=== PATIENT | female | born 1935 | race Caucasian/White ===

== ENCOUNTER 2017-11-10 22:18 | Emergency (ER) | payer MEDICARE, MEDICAID ==
--- NOTE | 2017-11-10 22:48 | EDM.PDOC ---
ED HPI GENERAL MEDICAL PROBLEM - General Chief Complaint: General Stated Complaint: low neck pain Time Seen by Provider: 11/10/17 22:35 Source of Information: Reports: Patient, Family History Limitations: Reports: No Limitations - History of Present Illness INITIAL COMMENTS - FREE TEXT/NARRATIVE: Patient seen with chief complaint of cervical neck pain examination reveal severe paravertebral spasm of the right neck area Onset: Sudden Duration: Minutes:, Getting Worse Location: Reports: Neck Quality: Reports: Throbbing Severity: Moderate Improves with: Reports: None Worsens with: Reports: None Context: Reports: Activity Associated Symptoms: Reports: Weakness Lower Neck Pain Score (Numeric/FACES): 4 - Related Data Allergies Allergy/AdvReac Type Severity Reaction Status Date / Time No Known Allergies Allergy Verified 11/10/17 22:24 Home Meds: Home Meds Aspirin [Halfprin] 81 mg PO DAILY 11/10/17 [History] Calcium Carbonate/Vitamin D3 [Calcium 600 + Vit D 200] 1 tab PO DAILY 11/10/17 [ History] Levothyroxine 75 mcg PO ACBREAKFAST 11/10/17 [History] Multivit-Min/FA/Lycopene/Lut [Sentry Senior Tablet] 1 tab PO DAILY 11/10/17 [ History] PARoxetine [Paxil] 10 mg PO DAILY 11/10/17 [History] Umeclidinium [place] [Incruse Ellipta*] 1 puff INH DAILY 11/10/17 [History] ED ROS GENERAL - Review of Systems Review Of Systems: See Below Constitutional: Reports: No Symptoms HEENT: Reports: No Symptoms Respiratory: Reports: No Symptoms Cardiovascular: Reports: No Symptoms Endocrine: Reports: No Symptoms GI/Abdominal: Reports: No Symptoms : Reports: No Symptoms Musculoskeletal: Reports: Neck Pain Skin: Reports: No Symptoms Neurological: Reports: No Symptoms Psychiatric: Reports: No Symptoms ED EXAM, GENERAL - Physical Exam Exam: See Below Exam Limited By: No Limitations General Appearance: Alert, WD/WN, No Apparent Distress, Mild Distress Eye Exam: Bilateral Eye: EOMI, PERRL Ears: Normal External Exam, Normal Canal, Hearing Grossly Normal, Normal TMs Ear Exam: Bilateral Ear: Auricle Normal, Canal Normal, TM normal Nose: Normal Inspection, Normal Mucosa, No Blood Throat/Mouth: Normal Inspection, Normal Lips, Normal Teeth, Normal Gums, Normal Oropharynx, Normal Voice, No Airway Compromise Head: Atraumatic, Normocephalic Neck: Limited Range of Motion, Tender Lateral Respiratory/Chest: No Respiratory Distress, Lungs Clear, Normal Breath Sounds, No Accessory Muscle Use, Chest Non-Tender Cardiovascular: Normal Peripheral Pulses, Regular Rate, Rhythm, No Edema, No Gallop, No JVD, No Murmur, No Rub GI/Abdominal: Normal Bowel Sounds, Soft, Non-Tender, No Organomegaly, No Distention, No Abnormal Bruit, No Mass (Female) Exam: Normal External Exam, Normal Speculum Exam, Normal Bimanual Exam Rectal (Female) Exam: Deferred Back Exam: Decreased Range of Motion, Muscle Spasm, Paraspinal Tenderness ( Right cervical neck) Extremities: Normal Inspection, Normal Range of Motion, Non-Tender, Normal Capillary Refill, No Pedal Edema Neurological: Alert, Oriented, CN II-XII Intact, Normal Cognition, Normal Gait, Normal Reflexes, No Motor/Sensory Deficits Psychiatric: Normal Affect, Normal Mood Skin Exam: Warm, Dry, Intact, Normal Color, No Rash Course - Vital Signs Last Recorded V/S: Last Vital Signs Temp 97.3 F 11/10/17 22:19 Pulse 81 11/10/17 23:49 Resp 20 11/10/17 23:49 BP 169/88 H 11/10/17 23:24 Pulse Ox 94 L 11/10/17 23:49 - Orders/Labs/Meds Orders: Active Orders 24 hr Category Date Time Status Cervical Spine 2V or 3V [CR] Stat Exams 11/10/17 22:44 Taken Labs: Laboratory Tests 11/10/17 Range/Units 23:00 Sodium 138 (136-145) mmol/L Potassium 3.8 (3.5-5.1) mmol/L Chloride 101 (98-107) mmol/L Carbon Dioxide 29.5 (21.0-32.0) mmol/L BUN 26 H (7-18) mg/dL Creatinine 0.99 (0.51-1.17) mg/dL Est Cr Clr Drug Dosing 30.38 mL/min Estimated GFR (MDRD) 53 mL/min Glucose 116 H (74-106) mg/dL Calcium 8.7 (8.5-10.1) mg/dL Magnesium 1.9 (1.8-2.4) mg/dL Total Bilirubin 0.2 (0.2-1.0) mg/dL AST 19 (15-37) U/L ALT 15 (12-78) U/L Alkaline Phosphatase 54 (46-116) IU/L Total Protein 7.5 (6.4-8.2) g/dL Albumin 3.3 L (3.4-5.0) g/dL Meds: Medications Discontinued Medications Generic Name Dose Route Start Last Admin Trade Name Kobiq PRN Reason Stop Dose Admin Diazepam 5 mg 11/10/17 22:47 11/10/17 23:29 Valium IM 11/10/17 22:48 Not Given ONETIME ONE Diazepam 5 mg 11/10/17 22:53 11/10/17 23:00 Valium IVPUSH 11/10/17 22:54 5 mg ONETIME ONE Administration Ondansetron HCl 4 mg 11/10/17 22:53 11/10/17 23:00 Zofran IVPUSH 11/10/17 22:54 4 mg ONETIME ONE Administration Departure - Departure Time of Disposition: 23:53 Disposition: Home, Self-Care 01 Condition: Fair Clinical Impression: Muscle spasms of neck - Discharge Information Referrals: Manuelito Vu PA [Primary Care Provider] - Forms: ED Department Discharge Care Plan Goals: At this time patient will be sent home doing much better on Flexeril 5 mg 1 tablet 3 times a day report of x-ray revealed 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
[2017-11-10] MEDS ORDERED: Ondansetron 4 MG/2 ML SDV IVPUSH ONE (22:53)
== END 2017-11-11 00:18 | disposition home or self-care (01) ==
LOC: LL.ED 22:18
DX: M62.838 Other muscle spasm (principal); Z79.82 Long term (current) use of aspirin; Z79.899 Other long term (current) drug therapy
CPT/HCPCS: 36415; 72040; 80053; 83735; 96374; 96375; 99284; J2405; J3360; 99283

== ENCOUNTER 2019-06-16 16:41 | Emergency (ER) | payer MEDICARE, MEDICAID ==
--- NOTE | 2019-06-16 16:53 | EDM.PDOC ---
ED HPI GENERAL MEDICAL PROBLEM - General Chief Complaint: Upper Extremity Injury/Pain Stated Complaint: right elbow pain Time Seen by Provider: 06/16/19 16:45 Source of Information: Reports: Patient, EMS History Limitations: Reports: No Limitations - History of Present Illness INITIAL COMMENTS - FREE TEXT/NARRATIVE: Patient is a 83-year-old who was seen with chief complaint of right elbow pain she slipped on the bottom step landing on her right hip and elbow DL up of subcutaneous hematoma on the right elbow and also complained of some hip discomfort with weightbearing and movement Onset: Today Duration: Hour(s):, Constant Location: Reports: Upper Extremity, Right, Lower Extremity, Right Quality: Reports: Ache, Dull Severity: Mild Improves with: Reports: Rest Worsens with: Reports: Movement Context: Reports: Trauma Associated Symptoms: Reports: No Other Symptoms Right Elbow Pain Score (Numeric/FACES): 7 - Related Data Allergies Allergy/AdvReac Type Severity Reaction Status Date / Time No Known Allergies Allergy Verified 11/10/17 22:24 Home Meds: Home Meds Aspirin [Halfprin] 81 mg PO DAILY 11/10/17 [History] Calcium Carbonate/Vitamin D3 [Calcium 600 + Vit D 200] 1 tab PO DAILY 11/10/17 [ History] Levothyroxine 75 mcg PO ACBREAKFAST 11/10/17 [History] Multivit-Min/FA/Lycopene/Lut [Sentry Senior Tablet] 1 tab PO DAILY 11/10/17 [ History] Umeclidinium [place] [Incruse Ellipta*] 1 puff INH DAILY 11/10/17 [History] Citalopram [Citalopram HBr] 10 mg PO DAILY 06/16/19 [History] Past Medical History Respiratory History: Reports: COPD Psychiatric History: Reports: Depression Endocrine/Metabolic History: Reports: Hypothyroidism Social & Family History - Caffeine Use Caffeine Use: Reports: Coffee Review of Systems - Review of Systems Review Of Systems: See Below Constitutional: Reports: No Symptoms Eyes: Reports: No Symptoms Ears: Reports: No Symptoms Nose: Reports: No Symptoms Mouth/Throat: Reports: No Symptoms Respiratory: Reports: Other (History of COPD) Cardiovascular: Reports: No Symptoms GI/Abdominal: Reports: No Symptoms Genitourinary: Reports: No Symptoms Musculoskeletal: Reports: No Symptoms Skin: Reports: No Symptoms Neurological: Reports: No Symptoms Psychiatric: Reports: No Symptoms ED EXAM, GENERAL - Physical Exam Exam: See Below Exam Limited By: No Limitations General Appearance: Alert, WD/WN, No Apparent Distress Ears: Normal External Exam, Normal Canal, Hearing Grossly Normal, Normal TMs Nose: Normal Inspection, Normal Mucosa, No Blood Throat/Mouth: Normal Inspection, Normal Lips, Normal Teeth, Normal Gums, Normal Oropharynx, Normal Voice, No Airway Compromise Head: Atraumatic, Normocephalic Neck: Normal Inspection, Supple, Non-Tender, Full Range of Motion Respiratory/Chest: Decreased Breath Sounds, Prolonged Expiration Cardiovascular: Normal Peripheral Pulses, Regular Rate, Rhythm, No Edema, No Gallop, No JVD, No Murmur, No Rub GI/Abdominal: Normal Bowel Sounds, Soft, Non-Tender, No Organomegaly, No Distention, No Abnormal Bruit, No Mass (Female) Exam: Deferred Rectal (Female) Exam: Deferred Back Exam: Normal Inspection, Full Range of Motion, NT Extremities: Joint Swelling, Limited Range of Motion, Other (X-rays revealed right olecranon fracture comminuted, right subcapit fracture) Neurological: Alert, Oriented, CN II-XII Intact, Normal Cognition, Normal Gait, Normal Reflexes, No Motor/Sensory Deficits Psychiatric: Normal Affect, Normal Mood Skin Exam: Warm, Ecchymosis (Ecchymosis of the right elbow) Lymphatic: No Adenopathy Course - Vital Signs Last Recorded V/S: Last Vital Signs Temp 97 F 06/16/19 16:42 Pulse 72 06/16/19 16:42 Resp 20 06/16/19 16:42 BP 156/76 H 06/16/19 16:42 Pulse Ox 96 06/16/19 16:42 - Orders/Labs/Meds Orders: Active Orders 24 hr Category Date Time Status Elbow Min 3V Rt [CR] Stat Exams 06/16/19 16:44 Taken Hip Min 2V or 3V Rt [CR] Stat Exams 06/16/19 16:46 Ordered Departure - Departure Time of Disposition: 18:47 Disposition: DC/Tfer to Acute Hospital 02 Condition: Fair Clinical Impression: Fracture of olecranon process, right, closed, Subcapital fracture of femur - Discharge Information *PRESCRIPTION DRUG MONITORING PROGRAM REVIEWED*: No *COPY OF PRESCRIPTION DRUG MONITORING REPORT IN PATIENT BUDDY: No Forms: ED Department Discharge Care Plan Goals: Patient will be transferred to [facility] ER spoke with Dr. Mnuiz the patient and will place her on an arm sling at this time and transfer - My Orders Last 24 Hours: My Active Orders 06/16/19 16:44 Elbow Min 3V Rt [CR] Stat 06/16/19 16:46 Hip Min 2V or 3V Rt [CR] Stat - Assessment/Plan Last 24 Hours: My Active Orders 06/16/19 16:44 Elbow Min 3V Rt [CR] Stat 06/16/19 16:46 Hip Min 2V or 3V Rt [CR] Stat
== END 2019-06-16 19:25 ==
LOC: LL.ED 16:41
DX: S52.021A Displaced fracture of olecranon process without intraarticular extension of right ulna, initial encounter for closed fracture (principal); S72.011A Unspecified intracapsular fracture of right femur, initial encounter for closed fracture; J44.9 Chronic obstructive pulmonary disease, unspecified; F32.9 Major depressive disorder, single episode, unspecified; E03.9 Hypothyroidism, unspecified; Z79.82 Long term (current) use of aspirin; Z79.899 Other long term (current) drug therapy; W10.8XXA Fall (on) (from) other stairs and steps, initial encounter
CPT/HCPCS: 73080-RT; 99285-25

== ENCOUNTER 2019-06-21 12:38 | Inpatient (IN) | payer MEDICARE, MEDICAID ==
--- NOTE | 2019-06-21 16:23 | PCM.HP.2 ---
H&P History of Present Illness - General Date of Service: 06/21/19 Source of Information: Patient, Old Records History Limitations: Reports: No Limitations - History of Present Illness Initial Comments - Free Text/Narative: Patient is a 84-year-old who was at home was going down steps missed her step on the last step hitting her right elbow and right hip patient was brought in for evaluation x-rays revealed a comminuted fracture of the right olecranon process and a subcapital fracture of the right femur patient was sent to the [facility] where she was treated with surgery which she tolerated well and was sent to our facility for recovery Onset of Symptoms: Reports: Sudden Duration of Symptoms: Reports: Day(s):, Improving Location: Reports: Upper Extremity, Right, Lower Extremity, Right Quality: Reports: Ache Severity: Moderate Improves with: Reports: Medication, Rest Worsens with: Reports: Movement - Related Data Allergies/Adverse Reactions: Allergies Allergy/AdvReac Type Severity Reaction Status Date / Time No Known Allergies Allergy Verified 11/10/17 22:24 Home Medications: Home Meds Aspirin [Halfprin] 81 mg PO DAILY 11/10/17 [History] Calcium Carbonate/Vitamin D3 [Calcium 600 + Vit D 200] 1 tab PO BID 11/10/17 [ History] Levothyroxine 75 mcg PO ACBREAKFAST 11/10/17 [History] Multivit-Min/FA/Lycopene/Lut [Sentry Senior Tablet] 1 tab PO DAILY 11/10/17 [ History] Umeclidinium [place] [Incruse Ellipta*] 1 puff INH DAILY 11/10/17 [History] Citalopram [Citalopram HBr] 10 mg PO DAILY 06/16/19 [History] Acetaminophen 650 mg PO Q4HR PRN MDD 4000mg 06/21/19 [History] Bisacodyl [Dulcolax] 10 mg RECTAL DAILY PRN MDD 10mg 06/21/19 [History] Calcium Carbonate [Calcium] 500 mg PO Q4HR PRN 06/21/19 [History] Cyanocobalamin (Vitamin B-12) [B-12] 1,000 mcg PO DAILY 06/21/19 [History] Enoxaparin [Lovenox] 40 mg SUBCUT DAILY 06/21/19 [History] Ferrous Sulfate 325 mg PO BID 06/21/19 [History] Folic Acid 5 mg PO DAILY 06/21/19 [History] Hydrocodone/Acetaminophen [Hydrocodon-Acetaminophen 5-325] 1 tab PO Q4HR PRN MDD 4000mg acetaminophen 06/21/19 [History] Ondansetron [Zofran ODT] 4 mg PO Q8H PRN 06/21/19 [History] Polyethylene Glycol 3350 [Miralax] 1 packet PO DAILY PRN 06/21/19 [History] Past Medical History Respiratory History: Reports: COPD Psychiatric History: Reports: Depression Endocrine/Metabolic History: Reports: Hypothyroidism Social & Family History - Caffeine Use Caffeine Use: Reports: Coffee H&P Review of Systems - Review of Systems: Review Of Systems: See Below General: Reports: No Symptoms HEENT: Reports: No Symptoms Pulmonary: Reports: No Symptoms Cardiovascular: Reports: No Symptoms Gastrointestinal: Reports: No Symptoms Genitourinary: Reports: No Symptoms Musculoskeletal: Reports: Arm Pain, Leg Pain Skin: Reports: Bruising, Erythema, Change in Color Psychiatric: Reports: No Symptoms Neurological: Reports: No Symptoms Exam - Exam Exam: See Below - Vital Signs Vital Signs: Last Vital Signs Temp 98.9 F 06/21/19 13:54 Pulse 66 06/21/19 13:54 Resp 18 06/21/19 13:54 BP 145/74 H 06/21/19 13:54 Pulse Ox 95 06/21/19 13:54 Weight: 143 lb - Exam General: Alert, Oriented, 4 HEENT: PERRLA, Hearing Intact, Mucosa Moist & Portis, Nares Patent, Normal Nasal Septum, Posterior Pharynx Clear, Conjunctiva Clear, EOMI, EACs Clear, TMs Clear Neck: Supple, Trachea Midline, 2 Lungs: Clear to Auscultation, Normal Respiratory Effort Cardiovascular: Regular Rate, Regular Rhythm GI/Abdominal Exam: Normal Bowel Sounds, Soft, Non-Tender, No Organomegaly, No Distention, No Abnormal Bruit, No Mass, Pelvis Stable (Female) Exam: Deferred Rectal (Female) Exam: Deferred Extremities: Slow Capillary Refill, Arm Pain, Leg Pain, Limited Range of Motion Skin: Ecchymosis, Incision Neurological: Cranial Nerves Intact, Reflexes Equal Bilateral Neuro Extensive - Mental Status: Alert, Oriented x3, Normal Mood/Affect, Normal Cognition Psychiatric: Alert, Normal Affect, Normal Mood - Problem List (1) Fracture of olecranon process, right, closed SNOMED Code(s): 60727303 ICD Code: S52.021A - DISP FX OF OLECRAN PRO W/O INTARTIC EXTN RIGHT ULNA, INIT Status: Acute Current Visit: No Problem Details: Patient underwent ORIF and now back here for recovery Qualifiers: Encounter type: subsequent encounter (2) Subcapital fracture of femur SNOMED Code(s): 292375491 ICD Code: S72.019A - UNSP INTRACAPSULAR FRACTURE OF UNSP FEMUR, INIT FOR CLOS FX Status: Acute Current Visit: No Qualifiers: Encounter type: subsequent encounter Fracture type: closed Laterality: right Problem List Initiated/Reviewed/Updated: Yes Assessment/Plan Comment:: Patient will be admitted to swing bed for physical therapy - Mortality Measure Prognosis:: Good
[2019-06-21] MEDS ORDERED: Bisacodyl 10 MG Supp RECTAL PRN (16:40)
[2019-06-21] MEDS ORDERED: Calcium Carbonate 500 MG Tablet PO PRN (16:41)
[2019-06-21] MEDS ORDERED: Acetaminophen/HYDROcodone 325-5 MG Tab PO PRN (16:41)
[2019-06-21] MEDS ORDERED: Polyethylene Glycol 3350 Powder 17 GM Packet PO PRN (16:41)
[2019-06-21] MEDS ORDERED: Ondansetron 4 MG Tab.DIS PO PRN (16:41)
[2019-06-21] MEDS: Ferrous Sulfate 325 MG Tab PO SCH (17:48)
[2019-06-21] MEDS: Calcium Carbonate/Vitamin D3 1500 MG-400 Units Tab PO SCH (17:48)
[2019-06-22] MEDS ORDERED: Folic Acid 1 MG Tab PO SCH (08:00)
[2019-06-22] MEDS: Aspirin 81 MG Tab.EC PO SCH (08:19)
[2019-06-22] MEDS: Ferrous Sulfate 325 MG Tab PO SCH ×2 (08:19→17:16)
[2019-06-22] MEDS: Multivitamins with Iron and Minerals Tab.Chew PO SCH (08:19)
[2019-06-22] MEDS: Citalopram 20 MG Tab PO SCH (08:19)
[2019-06-22] MEDS: Calcium Carbonate/Vitamin D3 1500 MG-400 Units Tab PO SCH ×2 (08:19→17:16)
[2019-06-22] MEDS: Levothyroxine 75 MCG Tab PO SCH (08:19)
[2019-06-22] MEDS: INCRUSE ELLIPTA INH SCH (08:20)
[2019-06-22] MEDS: Cyanocobalamin (Vitamin B12) 1,000 MCG Tab PO SCH (08:20)
[2019-06-22] MEDS: Enoxaparin 40 MG/0.4 ML Syringe SUBCUT SCH (08:21)
[2019-06-22] MEDS: Folic Acid 1 MG Tab PO SCH (14:13)
[2019-06-23] MEDS: Multivitamins with Iron and Minerals Tab.Chew PO SCH (07:42)
[2019-06-23] MEDS: Aspirin 81 MG Tab.EC PO SCH (07:43)
[2019-06-23] MEDS: Calcium Carbonate/Vitamin D3 1500 MG-400 Units Tab PO SCH ×2 (07:43→17:10)
[2019-06-23] MEDS: Cyanocobalamin (Vitamin B12) 1,000 MCG Tab PO SCH (07:43)
[2019-06-23] MEDS: Ferrous Sulfate 325 MG Tab PO SCH ×2 (07:43→17:10)
[2019-06-23] MEDS: Levothyroxine 75 MCG Tab PO SCH (07:43)
[2019-06-23] MEDS: Enoxaparin 40 MG/0.4 ML Syringe SUBCUT SCH (07:43)
[2019-06-23] MEDS: Citalopram 20 MG Tab PO SCH (07:43)
[2019-06-23] MEDS: Folic Acid 1 MG Tab PO SCH (07:43)
[2019-06-23] MEDS: INCRUSE ELLIPTA INH SCH (07:44)
[2019-06-23] MEDS: Acetaminophen 325 MG Tab PO PRN (21:03)
[2019-06-24] MEDS: Calcium Carbonate/Vitamin D3 1500 MG-400 Units Tab PO SCH ×2 (07:23→17:27)
[2019-06-24] MEDS: Cyanocobalamin (Vitamin B12) 1,000 MCG Tab PO SCH (07:23)
[2019-06-24] MEDS: Aspirin 81 MG Tab.EC PO SCH (07:23)
[2019-06-24] MEDS: Folic Acid 1 MG Tab PO SCH (07:23)
[2019-06-24] MEDS: Ferrous Sulfate 325 MG Tab PO SCH ×2 (07:23→17:27)
[2019-06-24] MEDS: Levothyroxine 75 MCG Tab PO SCH (07:23)
[2019-06-24] MEDS: Tiotropium Inhaler 18 MCG Inhalation Powder Cap Kit of 5 INH SCH (07:24)
[2019-06-24] MEDS: Citalopram 20 MG Tab PO SCH (07:24)
[2019-06-24] MEDS: Multivitamin Tab PO SCH (07:24)
[2019-06-24] MEDS: Enoxaparin 40 MG/0.4 ML Syringe SUBCUT SCH (07:24)
[2019-06-24] MEDS: Acetaminophen 325 MG Tab PO PRN ×2 (15:57→21:29)
[2019-06-25] MEDS: Citalopram 20 MG Tab PO SCH (07:56)
[2019-06-25] MEDS: Cyanocobalamin (Vitamin B12) 1,000 MCG Tab PO SCH (07:56)
[2019-06-25] MEDS: Ferrous Sulfate 325 MG Tab PO SCH ×2 (07:57→17:36)
[2019-06-25] MEDS: Levothyroxine 75 MCG Tab PO SCH (07:57)
[2019-06-25] MEDS: Aspirin 81 MG Tab.EC PO SCH (07:57)
[2019-06-25] MEDS: Multivitamin Tab PO SCH (07:57)
[2019-06-25] MEDS: Enoxaparin 40 MG/0.4 ML Syringe SUBCUT SCH (07:57)
[2019-06-25] MEDS: Folic Acid 1 MG Tab PO SCH (07:58)
[2019-06-25] MEDS: Tiotropium Inhaler 18 MCG Inhalation Powder Cap Kit of 5 INH SCH (07:58)
[2019-06-25] MEDS: Calcium Carbonate/Vitamin D3 1500 MG-400 Units Tab PO SCH ×2 (07:58→17:36)
[2019-06-25] MEDS: Acetaminophen 325 MG Tab PO PRN ×2 (13:20→21:37)
[2019-06-25] MEDS: Temazepam 15 MG Cap PO PRN (21:37)
[2019-06-26] MEDS: Ferrous Sulfate 325 MG Tab PO SCH ×2 (07:25→17:47)
[2019-06-26] MEDS: Folic Acid 1 MG Tab PO SCH (07:25)
[2019-06-26] MEDS: Levothyroxine 75 MCG Tab PO SCH (07:25)
[2019-06-26] MEDS: Calcium Carbonate/Vitamin D3 1500 MG-400 Units Tab PO SCH ×2 (07:26→17:47)
[2019-06-26] MEDS: Aspirin 81 MG Tab.EC PO SCH (07:26)
[2019-06-26] MEDS: Citalopram 20 MG Tab PO SCH (07:26)
[2019-06-26] MEDS: Multivitamin Tab PO SCH (07:26)
[2019-06-26] MEDS: Cyanocobalamin (Vitamin B12) 1,000 MCG Tab PO SCH (07:26)
[2019-06-26] MEDS: Enoxaparin 40 MG/0.4 ML Syringe SUBCUT SCH (07:27)
[2019-06-26] MEDS: Tiotropium Inhaler 18 MCG Inhalation Powder Cap Kit of 5 INH SCH (07:39)
[2019-06-26] MEDS: Temazepam 15 MG Cap PO PRN (22:59)
[2019-06-27] MEDS: Enoxaparin 40 MG/0.4 ML Syringe SUBCUT SCH (08:15)
[2019-06-27] MEDS: Calcium Carbonate/Vitamin D3 1500 MG-400 Units Tab PO SCH ×2 (08:17→17:49)
[2019-06-27] MEDS: Aspirin 81 MG Tab.EC PO SCH (08:17)
[2019-06-27] MEDS: Citalopram 20 MG Tab PO SCH (08:17)
[2019-06-27] MEDS: Cyanocobalamin (Vitamin B12) 1,000 MCG Tab PO SCH (08:18)
[2019-06-27] MEDS: Folic Acid 1 MG Tab PO SCH (08:18)
[2019-06-27] MEDS: Ferrous Sulfate 325 MG Tab PO SCH ×2 (08:18→17:48)
[2019-06-27] MEDS: Levothyroxine 75 MCG Tab PO SCH (08:18)
[2019-06-27] MEDS: Multivitamin Tab PO SCH (08:19)
[2019-06-27] MEDS: Tiotropium Inhaler 18 MCG Inhalation Powder Cap Kit of 5 INH SCH (08:19)
[2019-06-27] MEDS: Acetaminophen 325 MG Tab PO PRN (17:48)
[2019-06-27] MEDS: Temazepam 15 MG Cap PO PRN (20:46)
[2019-06-28] MEDS: Acetaminophen 325 MG Tab PO PRN ×2 (02:44→21:12)
[2019-06-28] MEDS: Citalopram 20 MG Tab PO SCH (07:22)
[2019-06-28] MEDS: Aspirin 81 MG Tab.EC PO SCH (07:22)
[2019-06-28] MEDS: Multivitamin Tab PO SCH (07:22)
[2019-06-28] MEDS: Calcium Carbonate/Vitamin D3 1500 MG-400 Units Tab PO SCH ×2 (07:23→17:19)
[2019-06-28] MEDS: Ferrous Sulfate 325 MG Tab PO SCH ×2 (07:23→17:19)
[2019-06-28] MEDS: Levothyroxine 75 MCG Tab PO SCH (07:23)
[2019-06-28] MEDS: Folic Acid 1 MG Tab PO SCH (07:23)
[2019-06-28] MEDS: Enoxaparin 40 MG/0.4 ML Syringe SUBCUT SCH (07:23)
[2019-06-28] MEDS: Cyanocobalamin (Vitamin B12) 1,000 MCG Tab PO SCH (07:23)
[2019-06-28] MEDS: Tiotropium Inhaler 18 MCG Inhalation Powder Cap Kit of 5 INH SCH (07:24)
[2019-06-28] MEDS: Temazepam 15 MG Cap PO PRN (21:12)
[2019-06-29] MEDS: Levothyroxine 75 MCG Tab PO SCH (08:21)
[2019-06-29] MEDS: Citalopram 20 MG Tab PO SCH (08:21)
[2019-06-29] MEDS: Multivitamin Tab PO SCH (08:22)
[2019-06-29] MEDS: Folic Acid 1 MG Tab PO SCH (08:22)
[2019-06-29] MEDS: Ferrous Sulfate 325 MG Tab PO SCH ×2 (08:22→17:26)
[2019-06-29] MEDS: Aspirin 81 MG Tab.EC PO SCH (08:22)
[2019-06-29] MEDS: Calcium Carbonate/Vitamin D3 1500 MG-400 Units Tab PO SCH ×2 (08:22→17:26)
[2019-06-29] MEDS: Cyanocobalamin (Vitamin B12) 1,000 MCG Tab PO SCH (08:22)
[2019-06-29] MEDS: Enoxaparin 40 MG/0.4 ML Syringe SUBCUT SCH (08:23)
[2019-06-29] MEDS: Tiotropium Inhaler 18 MCG Inhalation Powder Cap Kit of 5 INH SCH (08:24)
[2019-06-29] MEDS: Acetaminophen 325 MG Tab PO PRN (20:31)
[2019-06-29] MEDS: Temazepam 15 MG Cap PO PRN (20:31)
[2019-06-30] MEDS: Calcium Carbonate/Vitamin D3 1500 MG-400 Units Tab PO SCH ×2 (07:54→17:18)
[2019-06-30] MEDS: Levothyroxine 75 MCG Tab PO SCH (07:54)
[2019-06-30] MEDS: Citalopram 20 MG Tab PO SCH (07:54)
[2019-06-30] MEDS: Cyanocobalamin (Vitamin B12) 1,000 MCG Tab PO SCH (07:54)
[2019-06-30] MEDS: Ferrous Sulfate 325 MG Tab PO SCH ×2 (07:54→17:18)
[2019-06-30] MEDS: Enoxaparin 40 MG/0.4 ML Syringe SUBCUT SCH (07:54)
[2019-06-30] MEDS: Multivitamin Tab PO SCH (07:54)
[2019-06-30] MEDS: Folic Acid 1 MG Tab PO SCH (07:54)
[2019-06-30] MEDS: Aspirin 81 MG Tab.EC PO SCH (07:54)
[2019-06-30] MEDS: Tiotropium Inhaler 18 MCG Inhalation Powder Cap Kit of 5 INH SCH (07:59)
[2019-06-30] MEDS: Melatonin 3 MG Tab PO SCH (20:48)
[2019-06-30] MEDS: Acetaminophen 325 MG Tab PO PRN (20:48)
[2019-07-01] MEDS: Levothyroxine 75 MCG Tab PO SCH (07:38)
[2019-07-01] MEDS: Aspirin 81 MG Tab.EC PO SCH (07:47)
[2019-07-01] MEDS: Ferrous Sulfate 325 MG Tab PO SCH ×2 (07:47→17:05)
[2019-07-01] MEDS: Multivitamin Tab PO SCH (07:47)
[2019-07-01] MEDS: Cyanocobalamin (Vitamin B12) 1,000 MCG Tab PO SCH (07:47)
[2019-07-01] MEDS: Citalopram 20 MG Tab PO SCH (07:48)
[2019-07-01] MEDS: Calcium Carbonate/Vitamin D3 1500 MG-400 Units Tab PO SCH ×2 (07:49→17:05)
[2019-07-01] MEDS: Folic Acid 1 MG Tab PO SCH (07:49)
[2019-07-01] MEDS: Tiotropium Inhaler 18 MCG Inhalation Powder Cap Kit of 5 INH SCH (07:53)
[2019-07-01] MEDS: Enoxaparin 40 MG/0.4 ML Syringe SUBCUT SCH (07:53)
[2019-07-01] MEDS: Melatonin 3 MG Tab PO SCH (19:19)
[2019-07-01] MEDS: Acetaminophen 325 MG Tab PO PRN (20:19)
[2019-07-02] MEDS: Calcium Carbonate/Vitamin D3 1500 MG-400 Units Tab PO SCH ×2 (07:29→18:06)
[2019-07-02] MEDS: Aspirin 81 MG Tab.EC PO SCH (07:30)
[2019-07-02] MEDS: Levothyroxine 75 MCG Tab PO SCH (07:30)
[2019-07-02] MEDS: Multivitamin Tab PO SCH (07:30)
[2019-07-02] MEDS: Cyanocobalamin (Vitamin B12) 1,000 MCG Tab PO SCH (07:30)
[2019-07-02] MEDS: Citalopram 20 MG Tab PO SCH (07:30)
[2019-07-02] MEDS: Ferrous Sulfate 325 MG Tab PO SCH ×2 (07:30→18:07)
[2019-07-02] MEDS: Folic Acid 1 MG Tab PO SCH (07:30)
[2019-07-02] MEDS: Enoxaparin 40 MG/0.4 ML Syringe SUBCUT SCH (07:31)
[2019-07-02] MEDS: Acetaminophen 325 MG Tab PO PRN ×2 (07:31→20:27)
[2019-07-02] MEDS: Tiotropium Inhaler 18 MCG Inhalation Powder Cap Kit of 5 INH SCH (07:37)
[2019-07-02] MEDS: Melatonin 3 MG Tab PO SCH (20:25)
[2019-07-03] MEDS: Tiotropium Inhaler 18 MCG Inhalation Powder Cap Kit of 5 INH SCH (08:09)
[2019-07-03] MEDS: Enoxaparin 40 MG/0.4 ML Syringe SUBCUT SCH (08:09)
[2019-07-03] MEDS: Levothyroxine 75 MCG Tab PO SCH (08:10)
[2019-07-03] MEDS: Citalopram 20 MG Tab PO SCH (08:10)
[2019-07-03] MEDS: Ferrous Sulfate 325 MG Tab PO SCH ×2 (08:10→17:22)
[2019-07-03] MEDS: Multivitamin Tab PO SCH (08:11)
[2019-07-03] MEDS: Aspirin 81 MG Tab.EC PO SCH (08:11)
[2019-07-03] MEDS: Calcium Carbonate/Vitamin D3 1500 MG-400 Units Tab PO SCH ×2 (08:11→17:23)
[2019-07-03] MEDS: Cyanocobalamin (Vitamin B12) 1,000 MCG Tab PO SCH (08:11)
[2019-07-03] MEDS: Folic Acid 1 MG Tab PO SCH (08:11)
[2019-07-03] MEDS: Acetaminophen 325 MG Tab PO PRN (19:09)
[2019-07-03] MEDS: Melatonin 3 MG Tab PO SCH (19:09)
[2019-07-04] MEDS: Citalopram 20 MG Tab PO SCH (07:06)
[2019-07-04] MEDS: Ferrous Sulfate 325 MG Tab PO SCH ×2 (07:07→17:03)
[2019-07-04] MEDS: Levothyroxine 75 MCG Tab PO SCH (07:07)
[2019-07-04] MEDS: Calcium Carbonate/Vitamin D3 1500 MG-400 Units Tab PO SCH ×2 (07:08→17:03)
[2019-07-04] MEDS: Aspirin 81 MG Tab.EC PO SCH (07:08)
[2019-07-04] MEDS: Cyanocobalamin (Vitamin B12) 1,000 MCG Tab PO SCH (07:09)
[2019-07-04] MEDS: Folic Acid 1 MG Tab PO SCH (07:09)
[2019-07-04] MEDS: Multivitamin Tab PO SCH (07:09)
[2019-07-04] MEDS: Tiotropium Inhaler 18 MCG Inhalation Powder Cap Kit of 5 INH SCH (07:09)
[2019-07-04] MEDS: Enoxaparin 40 MG/0.4 ML Syringe SUBCUT SCH (07:10)
[2019-07-04] MEDS: Acetaminophen 325 MG Tab PO PRN ×4 (07:10→21:11)
[2019-07-04] MEDS: Melatonin 3 MG Tab PO SCH (21:11)
[2019-07-05] MEDS: Enoxaparin 40 MG/0.4 ML Syringe SUBCUT SCH (07:46)
[2019-07-05] MEDS: Multivitamin Tab PO SCH (07:47)
[2019-07-05] MEDS: Citalopram 20 MG Tab PO SCH (07:47)
[2019-07-05] MEDS: Folic Acid 1 MG Tab PO SCH (07:48)
[2019-07-05] MEDS: Calcium Carbonate/Vitamin D3 1500 MG-400 Units Tab PO SCH ×2 (07:48→17:49)
[2019-07-05] MEDS: Cyanocobalamin (Vitamin B12) 1,000 MCG Tab PO SCH (07:48)
[2019-07-05] MEDS: Ferrous Sulfate 325 MG Tab PO SCH ×2 (07:48→17:49)
[2019-07-05] MEDS: Aspirin 81 MG Tab.EC PO SCH (07:48)
[2019-07-05] MEDS: Levothyroxine 75 MCG Tab PO SCH (07:49)
[2019-07-05] MEDS: Tiotropium Inhaler 18 MCG Inhalation Powder Cap Kit of 5 INH SCH (07:50)
[2019-07-05] MEDS: Acetaminophen 325 MG Tab PO PRN (19:55)
[2019-07-05] MEDS: Melatonin 3 MG Tab PO SCH (19:55)
[2019-07-06] MEDS: Folic Acid 1 MG Tab PO SCH (07:40)
[2019-07-06] MEDS: Levothyroxine 75 MCG Tab PO SCH (07:40)
[2019-07-06] MEDS: Ferrous Sulfate 325 MG Tab PO SCH ×2 (07:40→17:18)
[2019-07-06] MEDS: Calcium Carbonate/Vitamin D3 1500 MG-400 Units Tab PO SCH ×2 (07:40→17:18)
[2019-07-06] MEDS: Citalopram 20 MG Tab PO SCH (07:41)
[2019-07-06] MEDS: Cyanocobalamin (Vitamin B12) 1,000 MCG Tab PO SCH (07:41)
[2019-07-06] MEDS: Multivitamin Tab PO SCH (07:41)
[2019-07-06] MEDS: Aspirin 81 MG Tab.EC PO SCH (07:41)
[2019-07-06] MEDS: Enoxaparin 40 MG/0.4 ML Syringe SUBCUT SCH (07:42)
[2019-07-06] MEDS: Tiotropium Inhaler 18 MCG Inhalation Powder Cap Kit of 5 INH SCH (07:42)
[2019-07-06] MEDS: Polyvinyl Alcohol 1.4% Ophth Soln 15 ML Bottle EYEBOTH PRN (19:06)
[2019-07-06] MEDS: Acetaminophen 325 MG Tab PO PRN (19:07)
[2019-07-06] MEDS: Melatonin 3 MG Tab PO SCH (19:07)
[2019-07-06] MEDS ORDERED: Calcium Carbonate 750 MG Tab.Chew PO PRN (19:08)
[2019-07-07] MEDS: Calcium Carbonate/Vitamin D3 1500 MG-400 Units Tab PO SCH ×2 (07:15→17:28)
[2019-07-07] MEDS: Folic Acid 1 MG Tab PO SCH (07:15)
[2019-07-07] MEDS: Cyanocobalamin (Vitamin B12) 1,000 MCG Tab PO SCH (07:15)
[2019-07-07] MEDS: Aspirin 81 MG Tab.EC PO SCH (07:15)
[2019-07-07] MEDS: Multivitamin Tab PO SCH (07:15)
[2019-07-07] MEDS: Citalopram 20 MG Tab PO SCH (07:16)
[2019-07-07] MEDS: Levothyroxine 75 MCG Tab PO SCH (07:16)
[2019-07-07] MEDS: Ferrous Sulfate 325 MG Tab PO SCH ×2 (07:16→17:28)
[2019-07-07] MEDS: Enoxaparin 40 MG/0.4 ML Syringe SUBCUT SCH (07:17)
[2019-07-07] MEDS: Tiotropium Inhaler 18 MCG Inhalation Powder Cap Kit of 5 INH SCH (07:18)
[2019-07-07] MEDS ORDERED: Pantoprazole 40 MG Vial IVPUSH SCH (14:00)
[2019-07-07] MEDS: Polyvinyl Alcohol 1.4% Ophth Soln 15 ML Bottle EYEBOTH PRN (19:41)
[2019-07-07] MEDS: Melatonin 3 MG Tab PO SCH (19:41)
[2019-07-07] MEDS: Acetaminophen 325 MG Tab PO PRN (19:41)
[2019-07-07] MEDS: Temazepam 15 MG Cap PO PRN (22:28)
[2019-07-08] MEDS: Levothyroxine 75 MCG Tab PO SCH (08:51)
[2019-07-08] MEDS: Tiotropium Inhaler 18 MCG Inhalation Powder Cap Kit of 5 INH SCH (08:51)
[2019-07-08] MEDS: Ferrous Sulfate 325 MG Tab PO SCH ×2 (08:52→17:50)
[2019-07-08] MEDS: Aspirin 81 MG Tab.EC PO SCH (08:52)
[2019-07-08] MEDS: Calcium Carbonate/Vitamin D3 1500 MG-400 Units Tab PO SCH ×2 (08:52→17:50)
[2019-07-08] MEDS: Multivitamin Tab PO SCH (08:53)
[2019-07-08] MEDS: Citalopram 20 MG Tab PO SCH (08:53)
[2019-07-08] MEDS: Cyanocobalamin (Vitamin B12) 1,000 MCG Tab PO SCH (08:53)
[2019-07-08] MEDS: Folic Acid 1 MG Tab PO SCH (08:53)
[2019-07-08] MEDS: Enoxaparin 40 MG/0.4 ML Syringe SUBCUT SCH (08:54)
[2019-07-08] MEDS: Melatonin 3 MG Tab PO SCH (21:02)
[2019-07-08] MEDS: Acetaminophen 325 MG Tab PO PRN (21:02)
[2019-07-09] MEDS: Enoxaparin 40 MG/0.4 ML Syringe SUBCUT SCH (07:54)
[2019-07-09] MEDS: Levothyroxine 75 MCG Tab PO SCH (07:55)
[2019-07-09] MEDS: Calcium Carbonate/Vitamin D3 1500 MG-400 Units Tab PO SCH ×2 (07:55→17:50)
[2019-07-09] MEDS: Folic Acid 1 MG Tab PO SCH (07:55)
[2019-07-09] MEDS: Multivitamin Tab PO SCH (07:55)
[2019-07-09] MEDS: Aspirin 81 MG Tab.EC PO SCH (07:55)
[2019-07-09] MEDS: Cyanocobalamin (Vitamin B12) 1,000 MCG Tab PO SCH (07:56)
[2019-07-09] MEDS: Citalopram 20 MG Tab PO SCH (07:56)
[2019-07-09] MEDS: Ferrous Sulfate 325 MG Tab PO SCH ×2 (07:56→17:49)
[2019-07-09] MEDS: Tiotropium Inhaler 18 MCG Inhalation Powder Cap Kit of 5 INH SCH (07:56)
[2019-07-09] MEDS: Acetaminophen 325 MG Tab PO PRN (19:42)
[2019-07-09] MEDS: Melatonin 3 MG Tab PO SCH (19:42)
[2019-07-10] MEDS: Levothyroxine 75 MCG Tab PO SCH (07:25)
[2019-07-10] MEDS: Citalopram 20 MG Tab PO SCH (07:26)
[2019-07-10] MEDS: Calcium Carbonate/Vitamin D3 1500 MG-400 Units Tab PO SCH ×2 (07:26→17:06)
[2019-07-10] MEDS: Ferrous Sulfate 325 MG Tab PO SCH ×2 (07:27→17:06)
[2019-07-10] MEDS: Aspirin 81 MG Tab.EC PO SCH (07:27)
[2019-07-10] MEDS: Folic Acid 1 MG Tab PO SCH (07:27)
[2019-07-10] MEDS: Enoxaparin 40 MG/0.4 ML Syringe SUBCUT SCH (07:27)
[2019-07-10] MEDS: Multivitamin Tab PO SCH (07:28)
[2019-07-10] MEDS: Tiotropium Inhaler 18 MCG Inhalation Powder Cap Kit of 5 INH SCH (07:28)
[2019-07-10] MEDS: Cyanocobalamin (Vitamin B12) 1,000 MCG Tab PO SCH (07:28)
[2019-07-10] MEDS: Acetaminophen 325 MG Tab PO PRN (20:05)
[2019-07-10] MEDS: Melatonin 3 MG Tab PO SCH (20:06)
[2019-07-11] MEDS: Calcium Carbonate/Vitamin D3 1500 MG-400 Units Tab PO SCH ×2 (08:04→17:38)
[2019-07-11] MEDS: Ferrous Sulfate 325 MG Tab PO SCH ×2 (08:04→17:38)
[2019-07-11] MEDS: Citalopram 20 MG Tab PO SCH (08:04)
[2019-07-11] MEDS: Enoxaparin 40 MG/0.4 ML Syringe SUBCUT SCH (08:04)
[2019-07-11] MEDS: Cyanocobalamin (Vitamin B12) 1,000 MCG Tab PO SCH (08:04)
[2019-07-11] MEDS: Folic Acid 1 MG Tab PO SCH (08:04)
[2019-07-11] MEDS: Aspirin 81 MG Tab.EC PO SCH (08:04)
[2019-07-11] MEDS: Levothyroxine 75 MCG Tab PO SCH (08:04)
[2019-07-11] MEDS: Multivitamin Tab PO SCH (08:04)
[2019-07-11] MEDS: Tiotropium Inhaler 18 MCG Inhalation Powder Cap Kit of 5 INH SCH (08:05)
[2019-07-11] MEDS: Acetaminophen 325 MG Tab PO PRN (20:31)
[2019-07-11] MEDS: Melatonin 3 MG Tab PO SCH (20:31)
[2019-07-12] MEDS: Multivitamin Tab PO SCH (07:48)
[2019-07-12] MEDS: Ferrous Sulfate 325 MG Tab PO SCH ×2 (07:48→17:24)
[2019-07-12] MEDS: Citalopram 20 MG Tab PO SCH (07:48)
[2019-07-12] MEDS: Cyanocobalamin (Vitamin B12) 1,000 MCG Tab PO SCH (07:48)
[2019-07-12] MEDS: Aspirin 81 MG Tab.EC PO SCH (07:48)
[2019-07-12] MEDS: Calcium Carbonate/Vitamin D3 1500 MG-400 Units Tab PO SCH ×2 (07:49→17:24)
[2019-07-12] MEDS: Folic Acid 1 MG Tab PO SCH (07:49)
[2019-07-12] MEDS: Levothyroxine 75 MCG Tab PO SCH (07:49)
[2019-07-12] MEDS: Enoxaparin 40 MG/0.4 ML Syringe SUBCUT SCH (07:50)
[2019-07-12] MEDS: Tiotropium Inhaler 18 MCG Inhalation Powder Cap Kit of 5 INH SCH (07:51)
[2019-07-12] MEDS: Acetaminophen 325 MG Tab PO PRN (19:49)
[2019-07-12] MEDS: Melatonin 3 MG Tab PO SCH (19:50)
[2019-07-13] MEDS: Enoxaparin 40 MG/0.4 ML Syringe SUBCUT SCH (07:45)
[2019-07-13] MEDS: Cyanocobalamin (Vitamin B12) 1,000 MCG Tab PO SCH (07:46)
[2019-07-13] MEDS: Multivitamin Tab PO SCH (07:46)
[2019-07-13] MEDS: Citalopram 20 MG Tab PO SCH (07:46)
[2019-07-13] MEDS: Tiotropium Inhaler 18 MCG Inhalation Powder Cap Kit of 5 INH SCH (07:46)
[2019-07-13] MEDS: Ferrous Sulfate 325 MG Tab PO SCH ×2 (07:46→17:06)
[2019-07-13] MEDS: Calcium Carbonate/Vitamin D3 1500 MG-400 Units Tab PO SCH ×2 (07:47→17:06)
[2019-07-13] MEDS: Levothyroxine 75 MCG Tab PO SCH (07:47)
[2019-07-13] MEDS: Aspirin 81 MG Tab.EC PO SCH (07:47)
[2019-07-13] MEDS: Folic Acid 1 MG Tab PO SCH (07:47)
[2019-07-13] MEDS: Melatonin 3 MG Tab PO SCH (20:10)
[2019-07-13] MEDS: Acetaminophen 325 MG Tab PO PRN (20:10)
[2019-07-14] MEDS: Calcium Carbonate/Vitamin D3 1500 MG-400 Units Tab PO SCH ×2 (07:43→17:49)
[2019-07-14] MEDS: Aspirin 81 MG Tab.EC PO SCH (07:43)
[2019-07-14] MEDS: Cyanocobalamin (Vitamin B12) 1,000 MCG Tab PO SCH (07:43)
[2019-07-14] MEDS: Levothyroxine 75 MCG Tab PO SCH (07:44)
[2019-07-14] MEDS: Folic Acid 1 MG Tab PO SCH (07:44)
[2019-07-14] MEDS: Citalopram 20 MG Tab PO SCH (07:44)
[2019-07-14] MEDS: Tiotropium Inhaler 18 MCG Inhalation Powder Cap Kit of 5 INH SCH (07:44)
[2019-07-14] MEDS: Multivitamin Tab PO SCH (07:44)
[2019-07-14] MEDS: Ferrous Sulfate 325 MG Tab PO SCH ×2 (07:44→17:49)
[2019-07-14] MEDS: Enoxaparin 40 MG/0.4 ML Syringe SUBCUT SCH (07:45)
[2019-07-14] MEDS: Acetaminophen 325 MG Tab PO PRN (19:36)
[2019-07-14] MEDS: Melatonin 3 MG Tab PO SCH (19:36)
[2019-07-15] MEDS: Tiotropium Inhaler 18 MCG Inhalation Powder Cap Kit of 5 INH SCH (07:24)
[2019-07-15] MEDS: Citalopram 20 MG Tab PO SCH (07:26)
[2019-07-15] MEDS: Levothyroxine 75 MCG Tab PO SCH (07:27)
[2019-07-15] MEDS: Folic Acid 1 MG Tab PO SCH (07:27)
[2019-07-15] MEDS: Aspirin 81 MG Tab.EC PO SCH (07:27)
[2019-07-15] MEDS: Calcium Carbonate/Vitamin D3 1500 MG-400 Units Tab PO SCH ×2 (07:27→17:45)
[2019-07-15] MEDS: Ferrous Sulfate 325 MG Tab PO SCH ×2 (07:28→17:45)
[2019-07-15] MEDS: Cyanocobalamin (Vitamin B12) 1,000 MCG Tab PO SCH (07:28)
[2019-07-15] MEDS: Multivitamin Tab PO SCH (07:28)
[2019-07-15] MEDS: Melatonin 3 MG Tab PO SCH (19:31)
[2019-07-15] MEDS: Acetaminophen 325 MG Tab PO PRN (19:35)
[2019-07-16] MEDS: Levothyroxine 75 MCG Tab PO SCH (08:18)
[2019-07-16] MEDS: Citalopram 20 MG Tab PO SCH (08:18)
[2019-07-16] MEDS: Aspirin 81 MG Tab.EC PO SCH (08:18)
[2019-07-16] MEDS: Multivitamin Tab PO SCH (08:18)
[2019-07-16] MEDS: Cyanocobalamin (Vitamin B12) 1,000 MCG Tab PO SCH (08:18)
[2019-07-16] MEDS: Folic Acid 1 MG Tab PO SCH (08:18)
[2019-07-16] MEDS: Calcium Carbonate/Vitamin D3 1500 MG-400 Units Tab PO SCH ×2 (08:19→17:01)
[2019-07-16] MEDS: Tiotropium Inhaler 18 MCG Inhalation Powder Cap Kit of 5 INH SCH (08:19)
[2019-07-16] MEDS: Ferrous Sulfate 325 MG Tab PO SCH ×2 (08:19→17:01)
[2019-07-16] MEDS: Melatonin 3 MG Tab PO SCH (19:56)
[2019-07-16] MEDS: Acetaminophen 325 MG Tab PO PRN (19:56)
[2019-07-17] MEDS: Levothyroxine 75 MCG Tab PO SCH (07:18)
[2019-07-17] MEDS: Tiotropium Inhaler 18 MCG Inhalation Powder Cap Kit of 5 INH SCH (07:18)
[2019-07-17] MEDS: Folic Acid 1 MG Tab PO SCH (07:19)
[2019-07-17] MEDS: Aspirin 81 MG Tab.EC PO SCH (07:19)
[2019-07-17] MEDS: Cyanocobalamin (Vitamin B12) 1,000 MCG Tab PO SCH (07:19)
[2019-07-17] MEDS: Multivitamin Tab PO SCH (07:19)
[2019-07-17] MEDS: Ferrous Sulfate 325 MG Tab PO SCH ×2 (07:19→17:57)
[2019-07-17] MEDS: Calcium Carbonate/Vitamin D3 1500 MG-400 Units Tab PO SCH ×2 (07:19→17:57)
[2019-07-17] MEDS: Citalopram 20 MG Tab PO SCH (07:19)
[2019-07-17] MEDS: Acetaminophen 325 MG Tab PO PRN (19:44)
[2019-07-17] MEDS: Melatonin 3 MG Tab PO SCH (19:44)
[2019-07-18] MEDS: Ferrous Sulfate 325 MG Tab PO SCH ×2 (08:04→17:14)
[2019-07-18] MEDS: Calcium Carbonate/Vitamin D3 1500 MG-400 Units Tab PO SCH ×2 (08:04→17:14)
[2019-07-18] MEDS: Multivitamin Tab PO SCH (08:05)
[2019-07-18] MEDS: Cyanocobalamin (Vitamin B12) 1,000 MCG Tab PO SCH (08:05)
[2019-07-18] MEDS: Aspirin 81 MG Tab.EC PO SCH (08:05)
[2019-07-18] MEDS: Levothyroxine 75 MCG Tab PO SCH (08:05)
[2019-07-18] MEDS: Folic Acid 1 MG Tab PO SCH (08:05)
[2019-07-18] MEDS: Tiotropium Inhaler 18 MCG Inhalation Powder Cap Kit of 5 INH SCH (08:06)
[2019-07-18] MEDS: Citalopram 20 MG Tab PO SCH (08:06)
[2019-07-18] MEDS: Acetaminophen 325 MG Tab PO PRN (20:21)
[2019-07-18] MEDS: Melatonin 3 MG Tab PO SCH (20:22)
[2019-07-19] MEDS: Citalopram 20 MG Tab PO SCH (07:24)
[2019-07-19] MEDS: Tiotropium Inhaler 18 MCG Inhalation Powder Cap Kit of 5 INH SCH (07:24)
[2019-07-19] MEDS: Levothyroxine 75 MCG Tab PO SCH (07:25)
[2019-07-19] MEDS: Calcium Carbonate/Vitamin D3 1500 MG-400 Units Tab PO SCH ×2 (07:25→17:35)
[2019-07-19] MEDS: Aspirin 81 MG Tab.EC PO SCH (07:25)
[2019-07-19] MEDS: Cyanocobalamin (Vitamin B12) 1,000 MCG Tab PO SCH (07:25)
[2019-07-19] MEDS: Multivitamin Tab PO SCH (07:25)
[2019-07-19] MEDS: Ferrous Sulfate 325 MG Tab PO SCH ×2 (07:25→17:35)
[2019-07-19] MEDS: Folic Acid 1 MG Tab PO SCH (07:40)
[2019-07-19] MEDS: Melatonin 3 MG Tab PO SCH (19:46)
[2019-07-19] MEDS: Acetaminophen 325 MG Tab PO PRN (19:47)
[2019-07-20] MEDS: Multivitamin Tab PO SCH (07:22)
[2019-07-20] MEDS: Ferrous Sulfate 325 MG Tab PO SCH ×2 (07:22→17:55)
[2019-07-20] MEDS: Cyanocobalamin (Vitamin B12) 1,000 MCG Tab PO SCH (07:22)
[2019-07-20] MEDS: Aspirin 81 MG Tab.EC PO SCH (07:22)
[2019-07-20] MEDS: Calcium Carbonate/Vitamin D3 1500 MG-400 Units Tab PO SCH ×2 (07:22→17:55)
[2019-07-20] MEDS: Tiotropium Inhaler 18 MCG Inhalation Powder Cap Kit of 5 INH SCH (07:22)
[2019-07-20] MEDS: Levothyroxine 75 MCG Tab PO SCH (07:22)
[2019-07-20] MEDS: Citalopram 20 MG Tab PO SCH (07:22)
[2019-07-20] MEDS: Folic Acid 1 MG Tab PO SCH (07:22)
[2019-07-20] MEDS: Calcium Carbonate 750 MG Tab.Chew PO PRN (19:23)
[2019-07-20] MEDS: Melatonin 3 MG Tab PO SCH (20:04)
[2019-07-20] MEDS: Acetaminophen 325 MG Tab PO PRN (20:04)
[2019-07-21] MEDS: Ferrous Sulfate 325 MG Tab PO SCH ×2 (07:36→17:35)
[2019-07-21] MEDS: Multivitamin Tab PO SCH (07:37)
[2019-07-21] MEDS: Levothyroxine 75 MCG Tab PO SCH (07:37)
[2019-07-21] MEDS: Folic Acid 1 MG Tab PO SCH (07:37)
[2019-07-21] MEDS: Aspirin 81 MG Tab.EC PO SCH (07:37)
[2019-07-21] MEDS: Calcium Carbonate/Vitamin D3 1500 MG-400 Units Tab PO SCH ×2 (07:38→17:35)
[2019-07-21] MEDS: Cyanocobalamin (Vitamin B12) 1,000 MCG Tab PO SCH (07:38)
[2019-07-21] MEDS: Citalopram 20 MG Tab PO SCH (07:38)
[2019-07-21] MEDS: Tiotropium Inhaler 18 MCG Inhalation Powder Cap Kit of 5 INH SCH (07:39)
[2019-07-21] MEDS: Melatonin 3 MG Tab PO SCH (20:21)
[2019-07-21] MEDS: Calcium Carbonate 750 MG Tab.Chew PO PRN (20:22)
[2019-07-22] MEDS: Ferrous Sulfate 325 MG Tab PO SCH ×2 (08:11→19:14)
[2019-07-22] MEDS: Calcium Carbonate/Vitamin D3 1500 MG-400 Units Tab PO SCH ×2 (08:11→19:13)
[2019-07-22] MEDS: Levothyroxine 75 MCG Tab PO SCH (08:11)
[2019-07-22] MEDS: Multivitamin Tab PO SCH (08:11)
[2019-07-22] MEDS: Citalopram 20 MG Tab PO SCH (08:12)
[2019-07-22] MEDS: Cyanocobalamin (Vitamin B12) 1,000 MCG Tab PO SCH (08:12)
[2019-07-22] MEDS: Aspirin 81 MG Tab.EC PO SCH (08:12)
[2019-07-22] MEDS: Tiotropium Inhaler 18 MCG Inhalation Powder Cap Kit of 5 INH SCH (08:12)
[2019-07-22] MEDS: Folic Acid 1 MG Tab PO SCH (08:12)
[2019-07-22] MEDS: Melatonin 3 MG Tab PO SCH (20:27)
[2019-07-23] MEDS: Ferrous Sulfate 325 MG Tab PO SCH ×2 (08:42→17:55)
[2019-07-23] MEDS: Citalopram 20 MG Tab PO SCH (08:43)
[2019-07-23] MEDS: Levothyroxine 75 MCG Tab PO SCH (08:43)
[2019-07-23] MEDS: Calcium Carbonate/Vitamin D3 1500 MG-400 Units Tab PO SCH ×2 (08:43→17:55)
[2019-07-23] MEDS: Multivitamin Tab PO SCH (08:43)
[2019-07-23] MEDS: Cyanocobalamin (Vitamin B12) 1,000 MCG Tab PO SCH (08:44)
[2019-07-23] MEDS: Folic Acid 1 MG Tab PO SCH (08:44)
[2019-07-23] MEDS: Aspirin 81 MG Tab.EC PO SCH (08:44)
[2019-07-23] MEDS: Tiotropium Inhaler 18 MCG Inhalation Powder Cap Kit of 5 INH SCH (08:47)
[2019-07-23] MEDS: Acetaminophen 325 MG Tab PO PRN (20:58)
[2019-07-23] MEDS: Melatonin 3 MG Tab PO SCH (20:58)
[2019-07-24] MEDS: Tiotropium Inhaler 18 MCG Inhalation Powder Cap Kit of 5 INH SCH (07:55)
[2019-07-24] MEDS: Aspirin 81 MG Tab.EC PO SCH (07:57)
[2019-07-24] MEDS: Citalopram 20 MG Tab PO SCH (07:57)
[2019-07-24] MEDS: Levothyroxine 75 MCG Tab PO SCH (07:57)
[2019-07-24] MEDS: Multivitamin Tab PO SCH (07:58)
[2019-07-24] MEDS: Calcium Carbonate/Vitamin D3 1500 MG-400 Units Tab PO SCH ×2 (07:58→18:30)
[2019-07-24] MEDS: Ferrous Sulfate 325 MG Tab PO SCH ×2 (07:58→18:29)
[2019-07-24] MEDS: Folic Acid 1 MG Tab PO SCH (07:58)
[2019-07-24] MEDS: Cyanocobalamin (Vitamin B12) 1,000 MCG Tab PO SCH (07:58)
--- NOTE | 2019-07-24 15:08 | PCM.DCSUM1 ---
Discharge Summary - Hospital Course Free Text/Narrative:: Patient was admitted to [facility] for rehab of PT/OT after a right olecranon process fracture and subcapital fracture of the right femur. Her femur was surgically repaired. She fell when she was going down her steps at home and sustained these injuries. She was admitted for pain control and rehab. She is doing well with these services and ready for discharge. She uses Tylenol PRN for pain control and is able to complete ADLs per self. She will be going home with meals on wheels and home health with PT/OT continued. She does have 2 stairs she has to go up at her home if she enters one way. She feels comfortable doing this. She will remain in her home and won't have to complete the steps often, as she will have . Patient has no concerns and is ready to be discharged. - Discharge Data Discharge Date: 07/25/19 Discharge Disposition: Home, W Home Health Agency 06 Condition: Good - Referral to Home Health Date of Face to Face Encounter: 07/24/19 Reason for Homebound Status: PT/OT, subcapital fracture of right femur, olecranon process fracture Primary Care Physician: JESSICA Pastrana Dr., MD Skilled Need: PT/OT and Home Health Nurse - Discharge Diagnosis/Problem(s) (1) Fracture of olecranon process, right, closed SNOMED Code(s): 76459869 ICD Code: S52.021A - DISP FX OF OLECRAN PRO W/O INTARTIC EXTN RIGHT ULNA, INIT Status: Acute Current Visit: No Problem Details: Patient is doing well and ambulating on own with cane. She is takes Tylenol PRN for pain management. She has a follow up appointment on 08/12 with surgeon, per her report. Qualifiers: Encounter type: subsequent encounter (2) Subcapital fracture of femur SNOMED Code(s): 739881170 ICD Code: S72.019A - UNSP INTRACAPSULAR FRACTURE OF UNSP FEMUR, INIT FOR CLOS FX Status: Acute Current Visit: No Problem Details: Patient is healing well and ambulating on own with cane. She will continue to see PT/OT in home with home health services. she uses Tylenol PRN for pain control Qualifiers: Encounter type: subsequent encounter Fracture type: closed Laterality: right - Patient Summary/Data Consults: Consultations 06/21/19 17:00 OT Evaluation and Treatment [CONS] Routine PT Evaluation and Treatment [CONS] Routine - Patient Instructions Diet: Usual Diet as Tolerated Activity: As Tolerated Showering/Bathing: May Shower - Discharge Plan *PRESCRIPTION DRUG MONITORING PROGRAM REVIEWED*: Not Applicable *COPY OF PRESCRIPTION DRUG MONITORING REPORT IN PATIENT BUDDY: Not Applicable Prescriptions/Med Rec: Citalopram [Citalopram HBr] 10 mg PO DAILY 30 Days #30 tablet Levothyroxine 75 mcg PO ACBREAKFAST 30 Days #30 tablet Home Medications: Home Meds Aspirin [Halfprin] 81 mg PO DAILY 11/10/17 [History] Calcium Carbonate/Vitamin D3 [Calcium 600 + Vit D 200] 1 tab PO BID 11/10/17 [ History] Multivit-Min/FA/Lycopene/Lut [Sentry Senior Tablet] 1 tab PO DAILY 11/10/17 [ History] Umeclidinium [place] [Incruse Ellipta*] 1 puff INH DAILY 11/10/17 [History] Acetaminophen 650 mg PO Q4HR PRN MDD 4000mg 06/21/19 [History] Cyanocobalamin (Vitamin B-12) [B-12] 1,000 mcg PO DAILY 06/21/19 [History] Ferrous Sulfate 325 mg PO BID 06/21/19 [History] Polyethylene Glycol 3350 [Miralax] 1 packet PO DAILY PRN 06/21/19 [History] Citalopram [Citalopram HBr] 10 mg PO DAILY 30 Days #30 tablet 07/24/19 [Rx] Folic Acid 1 mg PO DAILY tablet 07/24/19 [Rx] Levothyroxine 75 mcg PO ACBREAKFAST 30 Days #30 tablet 07/24/19 [Rx] Melatonin 3 mg PO BEDTIME tablet 07/24/19 [Rx] Polyvinyl Alcohol [LiquiTears 1.4% Ophth Soln] 0 ml EYEBOTH Q1H PRN bottle [Rx] Tiotropium [Spiriva HandiHaler] 18 mcg INH DAILY cap 07/24/19 [Rx] Oxygen Therapy Mode: Room Air - Discharge Summary/Plan Comment DC Time >30 min.: Yes - General Info Date of Service: 07/24/19 Functional Status: Reports: Pain Controlled, Tolerating Diet, Ambulating, Urinating - Review of Systems General: Reports: No Symptoms HEENT: Reports: No Symptoms, Glasses Pulmonary: Reports: No Symptoms Cardiovascular: Reports: No Symptoms Gastrointestinal: Reports: No Symptoms Genitourinary: Reports: No Symptoms Musculoskeletal: Reports: No Symptoms Skin: Reports: No Symptoms Neurological: Reports: No Symptoms Psychiatric: Reports: No Symptoms - Patient Data Vitals - Most Recent: Last Vital Signs Temp 97.9 F 07/24/19 08:00 Pulse 110 H 07/24/19 08:00 Resp 17 07/24/19 08:00 BP 154/76 H 07/24/19 08:00 Pulse Ox 93 L 07/24/19 08:00 Weight - Most Recent: 128 lb I&O - Last 24 hours: Intake & Output 07/24/19 07/24/19 07/24/19 06:59 14:59 22:59 Intake Total 840 Balance 840 Med Orders - Current: Current Medications Acetaminophen (Tylenol) 650 mg PO Q4HR PRN PRN Reason: Pain Last Admin: 07/23/19 20:58 Dose: 650 mg Hydrocodone Bitart/Acetaminophen ([place] 325-5 Mg) 1 tab PO Q4HR PRN PRN Reason: Pain Last Admin: 06/22/19 20:33 Dose: 1 tab Artificial Tears (Liquitears 1.4% Ophth Soln) 0 ml EYEBOTH Q1H PRN PRN Reason: Dry Eyes Last Admin: 07/07/19 19:41 Dose: 2 drop Aspirin (Halfprin) 81 mg PO DAILY [facility] Last Admin: 07/24/19 07:57 Dose: 81 mg Bisacodyl (Dulcolax) 10 mg RECTAL DAILY PRN PRN Reason: Constipation Calcium Carbonate (Caltrate 600+D 1500 Mg-400 Units) 1 tab PO BID [facility] Last Admin: 07/24/19 07:58 Dose: 1 tab Calcium Carbonate/Glycine (Tums Extra Strength) 750 mg PO QID PRN PRN Reason: Indigestion Last Admin: 07/21/19 20:22 Dose: 750 mg Citalopram Hydrobromide (Celexa) 10 mg PO DAILY [facility] Last Admin: 07/24/19 07:57 Dose: 10 mg Cyanocobalamin (Vitamin B12) 1,000 mcg PO DAILY [facility] Last Admin: 07/24/19 07:58 Dose: 1,000 mcg Ferrous Sulfate (Ferrous Sulfate) 325 mg PO BID [facility] Last Admin: 07/24/19 07:58 Dose: 325 mg Folic Acid (Folic Acid) 1 mg PO DAILY [facility] Last Admin: 07/24/19 07:58 Dose: 1 mg Levothyroxine Sodium (Levothyroxine) 75 mcg PO ACBREAKFAST [facility] Last Admin: 07/24/19 07:57 Dose: 75 mcg Melatonin (Melatonin) 3 mg PO BEDTIME [facility] Last Admin: 07/23/19 20:58 Dose: 3 mg Multivitamins/Minerals/Vitamin C (Tab-A-Rhianna) 1 tab PO DAILY [facility] Last Admin: 07/24/19 07:58 Dose: 1 tab Ondansetron HCl (Zofran Odt) 4 mg PO Q8H PRN PRN Reason: nausea Polyethylene Glycol (Miralax) 17 gm PO DAILY PRN PRN Reason: Constipation Temazepam (Restoril) 15 mg PO BEDTIME PRN PRN Reason: Insomnia Last Admin: 07/07/19 22:28 Dose: 15 mg Tiotropium [place] (Spiriva Handihaler) 18 mcg INH DAILY [facility] Last Admin: 07/24/19 07:55 Dose: 1 inhalation Discontinued Medications Calcium Carbonate/Glycine ([place] Calcium) 500 mg PO Q4HR PRN PRN Reason: Heartburn Calcium Carbonate/Glycine (Tums Extra Strength) 750 mg PO Q2HR PRN PRN Reason: Indigestion Last Admin: 07/06/19 19:21 Dose: 750 mg Enoxaparin Sodium (Lovenox) 40 mg SUBCUT DAILY [facility] Stop: 07/14/19 08:01 Last Admin: 07/14/19 07:45 Dose: 40 mg Folic Acid (Folic Acid) 5 mg PO DAILY [facility] Last Admin: 06/22/19 14:14 Dose: Not Given Influenza Virus Vaccine (Pharmacy To Dose - Influenza Vaccine) 1 each IM ONETIME ONE Stop: 07/09/19 16:54 Influenza Virus Vaccine (Fluzone High-Dose 2019- Syringe) 180 mcg IM .ONCE ONE Stop: 07/09/19 17:16 Last Admin: 07/09/19 17:47 Dose: 180 mcg Multivitamins/Folic Acid/Vitamin C (Cerovite Jr) 1 each PO DAILY [facility] Last Admin: 06/23/19 07:42 Dose: 1 each Incruse Ellipta (Own Med) 0 puff INH DAILY [facility] Last Admin: 06/23/19 07:44 Dose: 1 puff - Exam General: Reports: Alert, Oriented, Cooperative HEENT: Reports: Pupils Equal, Pupils Reactive Neck: Reports: Supple Lungs: Reports: Clear to Auscultation, Normal Respiratory Effort Cardiovascular: Reports: Regular Rate, Regular Rhythm GI/Abdominal Exam: Normal Bowel Sounds, Soft, Non-Tender, No Distention (Female) Exam: Deferred Rectal (Female) Exam: Deferred Back Exam: Reports: Normal Inspection, Full Range of Motion Extremities: Normal Inspection, Normal Range of Motion Skin: Reports: Warm, Dry, Intact Neurological: Reports: No New Focal Deficit Psy/Mental Status: Reports: Alert, Normal Affect, Normal Mood
[2019-07-24] MEDS: Acetaminophen 325 MG Tab PO PRN (19:58)
[2019-07-24] MEDS: Melatonin 3 MG Tab PO SCH (19:59)
[2019-07-25] MEDS: Levothyroxine 75 MCG Tab PO SCH (07:35)
[2019-07-25] MEDS: Cyanocobalamin (Vitamin B12) 1,000 MCG Tab PO SCH (07:36)
[2019-07-25] MEDS: Citalopram 20 MG Tab PO SCH (07:36)
[2019-07-25] MEDS: Folic Acid 1 MG Tab PO SCH (07:36)
[2019-07-25] MEDS: Aspirin 81 MG Tab.EC PO SCH (07:36)
[2019-07-25] MEDS: Multivitamin Tab PO SCH (07:36)
[2019-07-25] MEDS: Ferrous Sulfate 325 MG Tab PO SCH (07:36)
[2019-07-25] MEDS: Calcium Carbonate/Vitamin D3 1500 MG-400 Units Tab PO SCH (07:36)
[2019-07-25] MEDS: Tiotropium Inhaler 18 MCG Inhalation Powder Cap Kit of 5 INH SCH (07:36)
== END 2019-07-25 15:22 | disposition home health service (06) | DRG 561 ==
LOC: LL.MS 12:45
PROVIDERS: ADMIT Family Medicine; ATTEND Family Medicine
DX: S52.021D Displaced fracture of olecranon process without intraarticular extension of right ulna, subsequent encounter for closed fracture with routine healing (principal); S72.011D Unspecified intracapsular fracture of right femur, subsequent encounter for closed fracture with routine healing; J44.9 Chronic obstructive pulmonary disease, unspecified; F32.9 Major depressive disorder, single episode, unspecified; E03.9 Hypothyroidism, unspecified; Z79.899 Other long term (current) drug therapy
CPT/HCPCS: 36415; 85025; 90662; 94640; 97022-GO; 97110-GO; 97110-GP; 97116-GP; 97140-GO; 97161-GP; 97165-GO; 97530-GO; 97530-GP; 97535-GO; A9270-GY; J1650

== ENCOUNTER 2022-10-01 17:50 | Emergency (ER) | payer MEDICARE, MEDICAID | END 2022-10-01 19:35 | disposition home or self-care (01) | LOC: LL.ED 17:50 | DX: S70.02XA Contusion of left hip, initial encounter (principal); I10 Essential (primary) hypertension; E03.9 Hypothyroidism, unspecified; Z79.82 Long term (current) use of aspirin; Z79.899 Other long term (current) drug therapy; Z87.891 Personal history of nicotine dependence; W17.89XA Other fall from one level to another, initial encounter | CPT/HCPCS: 99283; 99284 ==